=== PATIENT | female | born 1995 ===

== ENCOUNTER 2016-10-06 12:58 | Emergency (ER) | payer SELFPAY ==
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
== END 2016-10-06 14:45 | disposition home or self-care (01) ==
LOC: UCEAST 12:58
DX: R20.2 Paresthesia of skin (principal); W86.8XXA Exposure to other electric current, initial encounter
CPT/HCPCS: 99201; G0463

== ENCOUNTER 2018-10-22 07:05 | Emergency (ER) | payer OTHER ==
--- NOTE | 2018-10-22 07:27 | UC ---
Complaint Female HPI - HPI Summary HPI Summary: patient is a 23-year-old female who presents to the urgent requesting a test. she reports that the test was on September 29, 2018. She uses oral contraceptive pills and also she uses condoms. She has no other complaints. - History Of Current Complaint Chief Complaint: UCGU Stated Complaint: WANTS PREG TEST Time Seen by Provider: 10/22/18 07:21 Hx Obtained From: Patient Hx Last Menstrual Period: 09/29/18 Pain Intensity: 0 - Allergies/Home Medications Allergies/Adverse Reactions: Allergies Allergy/AdvReac Type Severity Reaction Status Date / Time ibuprofen Allergy Hives Verified 10/22/18 07:20 Home Medications: Home Medications Afaxys Control 1 tab PO DAILY 10/22/18 [History Confirmed 10/22/18] Pantoprazole TAB (NF) [Protonix TAB (NF)] 1 tab PO DAILY 10/22/18 [History Confirmed 10/22/18] PMH/Surg Hx/FS Hx/Imm Hx Previously Healthy: No - Surgical History Surgical History: None - Family History Known Family History: Positive: Non-Contributory Negative: Blood Disorder - Social History Alcohol Use: None Substance Use Type: None Smoking Status (MU): Never Smoked Tobacco Review of Systems All Other Systems Reviewed And Are Negative: Yes Constitutional: Positive: Negative Skin: Positive: Negative Eyes: Positive: Negative ENT: Positive: Negative Respiratory: Positive: Negative Cardiovascular: Positive: Negative Gastrointestinal: Positive: Negative Genitourinary: Positive: Negative Motor: Positive: Negative Neurovascular: Positive: Negative Musculoskeletal: Positive: Negative Neurological: Positive: Negative Psychological: Positive: Negative - work. . Is Patient Immunocompromised?: No Physical Exam - Summary Physical Exam Summary: VITAL SIGNS: Reviewed. GENERAL: Patient is a well developed and nourished female who is lying comfortably in the stretcher. Patient is not in any acute respiratory distress. HEAD AND FACE: No signs of trauma. No ecchymosis, hematomas or skull depressions. No sinus tenderness. EYES: PERRLA, EOMI x 2, No injected conjunctiva, no nystagmus. EARS: Hearing grossly intact. Ear canals and tympanic membranes are within normal limits. MOUTH: Oropharynx within normal limits. NECK: Supple, trachea is midline, no adenopathy, no JVD, no carotid bruit, no c- spine tenderness, neck with full ROM. CHEST: Symmetric, no tenderness at palpation LUNGS: Clear to auscultation bilaterally. No wheezing or crackles. CVS: Regular rate and rhythm, S1 and S2 present, no murmurs or gallops appreciated. ABDOMEN: Soft, non-tender. No signs of distention. No rebound no guarding, and no masses palpated. Bowel sounds are normal. EXTREMITIES: FROM in all major joints, no edema, no cyanosis or clubbing. NEURO: Alert and oriented x 3. No acute neurological deficits. Speech is normal and follows commands. SKIN: Dry and warm Triage Information Reviewed: Yes Appearance: Well-Appearing Vital Signs: Initial Vital Signs Temp 98.5 F 10/22/18 07:14 Pulse 77 10/22/18 07:14 Resp 18 10/22/18 07:14 BP 136/98 10/22/18 07:14 Pulse Ox 98 10/22/18 07:14 Vital Signs Reviewed: Yes Complaint Female Dx - Course Course Of Treatment: patient's test is negative. Therefore the patient will be discharged home with follow-up with primary care physician. Beck patient is hemodynamically stable alert oriented 3. - Differential Dx/Diagnosis Provider Diagnosis: test negative Discharge - Sign-Out/Discharge Documenting (check all that apply): Patient Departure All imaging exams completed and their final reports reviewed: No Studies - Discharge Plan Condition: Stable Disposition: HOME Patient Education Materials: Normal Exam (ED) Referrals: No Primary Care Phys,NOPCP [Primary Care Provider] - [facility] [Outside] Additional Instructions: follow-up with the primary care physician as needed. - Billing Disposition and Condition Condition: STABLE Disposition: Home
== END 2018-10-22 07:45 | disposition home or self-care (01) ==
LOC: UCEAST 07:05
DX: Z32.02 Encounter for pregnancy test, result negative (principal)
CPT/HCPCS: 84702; 99211; G0463